=== PATIENT | female | born 1985 | race Caucasian/White ===

== ENCOUNTER → 2017-04-08 | Day surgery (SDC) | payer BC ==
[~2017-04-08] MED LIST: ALLEGRA PO; ALMOTRIPTAN M12.5 MG; DIAZEPAM PO; FEVERFEW EXTRACT1 GM PO; MAGNESIUM500 MG PO; MILK THISTLE175 MG PO; NARATRIPTAN2.5 MG PO; OXYCODONE HCL10 MG PO; PETADOLEX 7575 MG; RIBOFLAVIN400 MG PO; TIZANIDINE HCL4 M1 PO; VITAMIN B122500 MCG; XYZAL5 MG PO; ZYRTEC10 M1 PO
--- NOTE | ~2017-04-08 | OR ---
Unit #: [id number] #: [id number] Patient: SHANNA MAHER [id number] [address] [place], [place] [address] [id number] O MR#: [id number] NAME: SHANNA MAHER ROOM: Date of Procedure: 04/08/2017 Admission Date: 04/08/2017 Surgeon: Ravinder Chilel M.D. : 1985 Attending Physician: Ravinder Chilel M.D. OPERATIVE REPORT PREOPERATIVE DIAGNOSES Back pain and lumbar facet disease. POSTOPERATIVE DIAGNOSES Back pain and lumbar facet disease. PROCEDURE PERFORMED Lumbar facet injections, diagnostic and therapeutic modality x2 levels. DESCRIPTION OF PROCEDURE The patient was placed in a prone position. Standard monitors were applied. Sterile prep and drape of the lumbar area was performed. The skin then overlying the left-sided L4-L5 and L5-S1 facet joints was localized with 1% lidocaine using fluoroscopic guidance. At both of these levels, a 22-gauge Quincke point needle was advanced into the facet joint. The patient has some localized mild discomfort, but no paresthesia. After confirming proper positioning with fluoroscopy, a dose of 1 mL of a mixture of 80 mg of Depo-Medrol and 3 mL of 0.25% bupivacaine was injected at each facet, 0.5 mL within the facet joint and 0.5 mL just outside. The needles were flushed and removed. The exact same procedure was then repeated on the right side using fluoroscopic guidance at L4-5 and L5-S1. Again after confirming proper positioning with fluoroscopy, a dose of 1 mL of the previously mentioned mixture was used, 0.5 mL in the joint and 0.5 mL just outside the joint. The needles were flushed and removed. The patient tolerated the procedure otherwise well and was discharged to the recovery room in stable condition. Dictated by... Criss Welsh/ladarius TD: 04/08/2017 11:07 JOB #: [id number] Unit #: [id number] #: [id number] Patient: SHANNA MAHER OPERATIVE REPORT Page 1 of 1 X Ravinder Chilel MD X PROCEDURE OPERATIVE NOTE
== END | disposition home or self-care (01) ==
LOC: CCSC 09:05
DX: M53.86 Other specified dorsopathies, lumbar region (principal); G43.909 Migraine, unspecified, not intractable, without status migrainosus; Z79.899 Other long term (current) drug therapy; Z79.891 Long term (current) use of opiate analgesic
CPT/HCPCS: J1040; J2250